=== PATIENT | male | born 1950 | race Caucasian/White ===

== ENCOUNTER 2019-08-20 07:32 | Day surgery (SDC) | payer MEDICARE, OTHER ==
[~2019-08-20 07:32] MED LIST: Lactated Ringers 1,000 ML IV SCH; Sodium Chloride 0.9% 10 ML SDV IV PRN; Sodium Chloride 0.9% 10 ML Syringe FLUSH PRN; Sodium Chloride 0.9% 2.5 ML Syringe FLUSH PRN; ceFAZolin 2 GM in Premix Bag 1 BAG IV ONE
--- NOTE | 2019-08-20 08:02 | PCM.PREANE ---
Preanesthetic Assessment - Anesthesia/Transfusion/Family Hx Anesthesia History: Prior Anesthesia Without Reaction Family History of Anesthesia Reaction: No Transfusion History: No Prior Transfusion(s) Intubation History: Unknown - Review of Systems General: No Symptoms Pulmonary: No Symptoms Cardiovascular: No Symptoms Gastrointestinal: No Symptoms Neurological: No Symptoms Other: Reports: None - Physical Assessment Height: 5 ft 10 in Weight: 100.698 kg ASA Class: 2 Mental Status: Alert & Oriented x3 Airway Class: Mallampati = 2 Dentition: Reports: Normal Dentition (small chip front upper incisor) Thyro-Mental Finger Breadths: 3 Mouth Opening Finger Breadths: 2 ROM/Head Extension: Full Lungs: Clear to Auscultation, Normal Respiratory Effort Cardiovascular: Regular Rate, Regular Rhythm - Allergies Allergies/Adverse Reactions: Allergies Allergy/AdvReac Type Severity Reaction Status Date / Time No Known Allergies Allergy Verified 08/16/19 08:50 - Blood Blood Available: No - Anesthesia Plan Pre-Op Medication Ordered: None - Acknowledgements Anesthesia Type Planned: Spinal (general anesthesia back-up plan) Pt an Appropriate Candidate for the Planned Anesthesia: Yes Alternatives and Risks of Anesthesia Discussed w Pt/Guardian: Yes Pt/Guardian Understands and Agrees with Anesthesia Plan: Yes PreAnesthesia Questionnaire HEENT History: Reports: None Cardiovascular History: Reports: Blood Clots/VTE/DVT, Hypertension Other Cardiovascular History: DVT left leg 2 years ago, 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 [place], [place] - no evidence of DVT Respiratory History: Reports: None Gastrointestinal History: Reports: None Genitourinary History: Reports: None Musculoskeletal History: Reports: None Neurological History: Reports: None Psychiatric History: Reports: None Endocrine/Metabolic History: Reports: Obesity/BMI 30+ (BMI 31.9) Hematologic History: Reports: None Immunologic History: Reports: None Oncologic (Cancer) History: Reports: None Dermatologic History: Reports: None - Past Surgical History Head Surgeries/Procedures: Reports: None HEENT Surgical History: Reports: Cataract Surgery (local anesthesia) Cardiovascular Surgical History: Reports: None Respiratory Surgical History: Reports: None GI Surgical History: Reports: None Male Surgical History: Reports: None Endocrine Surgical History: Reports: None Neurological Surgical History: Reports: None Musculoskeletal Surgical History: Reports: None Oncologic Surgical History: Reports: None Dermatological Surgical History: Reports: None - SUBSTANCE USE Smoking Status *Q: Never Smoker - HOME MEDS Home Medications: Home Meds lisinopriL [Lisinopril] 10 mg PO DAILY 08/16/19 [History] - CURRENT (IN HOUSE) MEDS Current Meds: Current Medications Lactated Ringer's (Ringers, Lactated) 1,000 mls @ 100 mls/hr IV ASDIRECTED JOSH Sodium Chloride (Saline Flush) 10 ml FLUSH ASDIRECTED PRN PRN Reason: Keep Vein Open Sodium Chloride (Saline Flush) 2.5 ml FLUSH ASDIRECTED PRN PRN Reason: Keep Vein Open Sodium Chloride (Normal Saline) 10 ml IV ASDIRECTED PRN PRN Reason: IV Use Discontinued Medications Cefazolin Sodium/Dextrose 2 gm (/ Premix) 50 mls @ 100 mls/hr IV ONETIME ONE Stop: 08/20/19 00:30
[2019-08-20] MEDS ORDERED: fentaNYL 100 MCG/2 ML SDV ONE ×2 (08:59→09:46)
[2019-08-20] MEDS ORDERED: Ondansetron 4 MG/2 ML SDV ONE (08:59)
[2019-08-20] MEDS ORDERED: Propofol 200 MG/20 ML SDV ONE ×3 (08:59→13:12)
[2019-08-20] MEDS ORDERED: Midazolam 1 MG/ML 2 ML SDV ONE (09:00)
[2019-08-20] MEDS ORDERED: Lidocaine 2% 5 ML SDV ONE (09:00)
[2019-08-20] MEDS ORDERED: Ketorolac 30 MG/ML SDV ONE ×2 (10:24→12:12)
[2019-08-20] MEDS ORDERED: Sodium Chloride 0.9% 20 ML ONE (11:34)
[2019-08-20] MEDS ORDERED: ceFAZolin 1 GM Vial ONE (11:34)
[2019-08-20] MEDS ORDERED: Bupivacaine 0.25% 10 ML SDV ONE (11:40)
[2019-08-20] MEDS ORDERED: Morphine 10 MG/ML Syringe IVPUSH ONE (13:23)
--- NOTE | 2019-08-20 13:57 | PCM.POSTAN ---
POST ANESTHESIA ASSESSMENT - MENTAL STATUS Mental Status: Alert - VITAL SIGNS Vital Signs: Last Vital Signs Temp 36 C L 08/20/19 13:32 Pulse 53 L 08/20/19 13:47 Resp 10 L 08/20/19 13:47 BP 153/74 H 08/20/19 13:47 Pulse Ox 95 08/20/19 13:47 - RESPIRATORY Respiratory Status: Respiratory Rate WNL - CARDIOVASCULAR CV Status: Pulse Rate WNL - GASTROINTESTINAL GI Status: No Symptoms - PAIN Pain Score: 0 (SAB regressing) - POST OP HYDRATION Hydration Status: Adequate & Stable (Doing well.)
[2019-08-20] MEDS ORDERED: Acetaminophen/HYDROcodone 325-5 MG Tab PO ONE (14:26)
[2019-08-20] MEDS ORDERED: Acetaminophen/HYDROcodone 325-5 MG Tab ONE (14:34)
--- NOTE | 2019-08-20 14:48 | PCM48HPAN ---
Post Anesthesia Note - EVALUATION WITHIN 48HRS OF ANESTHETIC Vital Signs in Normal Range: Yes Patient Participated in Evaluation: Yes Respiratory Function Stable: Yes Airway Patent: Yes Cardiovascular Function Stable: Yes Hydration Status Stable: Yes Pain Control Satisfactory: Yes Nausea and Vomiting Control Satisfactory: Yes Mental Status Recovered: Yes Vital Signs: Last Vital Signs Temp 36 C L 08/20/19 13:32 Pulse 53 L 08/20/19 13:47 Resp 10 L 08/20/19 13:47 BP 153/74 H 08/20/19 13:47 Pulse Ox 95 08/20/19 13:47 - COMMENTS/OBSERVATIONS Free Text/Narrative:: No anesthesia problems
--- NOTE | 2019-08-20 14:50 | OR ---
SURGEON: Praveen Abreu M.D. DATE OF PROCEDURE: 08/20/2019 PREOPERATIVE DIAGNOSIS: Bilateral epididymal cyst. POSTOPERATIVE DIAGNOSIS: Bilateral epididymal cyst. OPERATION: Bilateral epididymal cyst excision. DESCRIPTION OF PROCEDURE: The patient was given spinal anesthesia. He was in the supine position. External genital area was prepped and draped in sterile drapes. A transverse incision made in left scrotal sac. The epididymal cyst was entirely excised. The testicle now has a longer cord and more space, was secured to the wall of the scrotal sac with one suture of 3-0 chromic for good measure. The space was drained with half-inch Sebastian drain, brought to the outside through a separate stab wound incision at the bottom of the scrotal sac. The incision was then closed using interrupted full-thickness 3-0 chromic sutures. The exact same procedure was done on the right side. With that done, the procedure was terminated. The patient was moved to recovery room in good condition. He will come back to the office in 2 days to have the [place] drains removed and then again a week from today for followup exam. JOEY / DK /[id number]
== END 2019-08-20 15:05 | disposition home or self-care (01) ==
LOC: MW.SDS 07:32
PROVIDERS: ATTEND Urology
DX: N50.3 Cyst of epididymis (principal); N43.3 Hydrocele, unspecified; E66.9 Obesity, unspecified; Z68.31 Body mass index [BMI] 31.0-31.9, adult
CPT/HCPCS: 54830; 88304; A9270; J0131; J0690; J1885; J2001; J2250; J2405; J2704; J3010; J3490; J7120; 00920

== ENCOUNTER 2019-08-20 20:03 | Emergency (ER) | payer MEDICARE ==
--- NOTE | 2019-08-20 20:31 | EDM.PDOC ---
ED HPI GENERAL MEDICAL PROBLEM - General Chief Complaint: Genitourinary Problem Stated Complaint: SURGERY COMPLICATIONS Time Seen by Provider: 08/20/19 20:18 Source of Information: Reports: Patient History Limitations: Reports: No Limitations - History of Present Illness INITIAL COMMENTS - FREE TEXT/NARRATIVE: This patient is a 69-year-old male with a past medical history of hypertension, postop day #0 status post bilateral epididymal cyst excisions performed at our facility by Dr. Abreu. He states that he went home from same-day surgery around 4 PM. After he went home, he developed new bleeding from the bilateral scrotal drains that were placed during the surgery. The amount of bleeding was concerning to him, so he came to our emergency department evaluated. He states that he did change his dressings 1 time prior to arrival, and the bleeding has since stopped. He denies any anticoagulation or antiplatelet medication usage. At present he denies any pain, denies any worsening scrotal edema/swelling since being discharged from same-day surgery. 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 [place] - no evidence of DVT Respiratory History: Reports: None Gastrointestinal History: Reports: None Genitourinary History: Reports: None Musculoskeletal History: Reports: None Neurological History: Reports: None Psychiatric History: Reports: None Endocrine/Metabolic History: Reports: Obesity/BMI 30+ Hematologic History: Reports: None Immunologic History: Reports: None Oncologic (Cancer) History: Reports: None Dermatologic History: Reports: None - Past Surgical History Head Surgeries/Procedures: Reports: None HEENT Surgical History: Reports: Cataract Surgery Cardiovascular Surgical History: Reports: None Respiratory Surgical History: Reports: None GI Surgical History: Reports: None Male Surgical History: Reports: None Endocrine Surgical History: Reports: None Neurological Surgical History: Reports: None Musculoskeletal Surgical History: Reports: None Oncologic Surgical History: Reports: None Dermatological Surgical History: Reports: None Social & Family History - Family History Family Medical History: Noncontributory ED ROS GENERAL - Review of Systems Review Of Systems: Comprehensive ROS is negative, except as noted in HPI. Constitutional: Denies: Fever HEENT: Reports: No Symptoms Respiratory: Denies: Shortness of Breath Cardiovascular: Denies: Chest Pain Endocrine: Reports: No Symptoms GI/Abdominal: Denies: Abdominal Pain, Nausea, Vomiting : Reports: Other (Bleeding from bilateral scrotal drains placed during surgery ). Denies: Dysuria, Frequency, Urgency Musculoskeletal: Reports: No Symptoms Skin: Reports: No Symptoms Neurological: Reports: No Symptoms Psychiatric: Reports: No Symptoms Hematologic/Lymphatic: Reports: No Symptoms Immunologic: Reports: No Symptoms ED EXAM, RENAL/ - Physical Exam Exam: See Below Text/Narrative:: All signs reviewed. Nursing notes reviewed. Constitutional: Awake, alert, non-distressed Head: Normocephalic, atraumatic Eyes: EOMI, PERRL at 3 mm bilaterally, conjunctiva normal, no discharge, no scleral icterus Ears, Nose, Throat: External ears and ears normal, moist oral mucosa Cardiovascular: RRR, no R/M/G, 2+ radial pulses bilaterally, capillary refill less than 2 seconds Pulmonary: CTABL, normal work of breathing, no accessory muscle use Abdomen/GI: Soft, nontender, nondistended, no guarding or rigidity, no masses Genitourinary: Scrotal edema noted, patient states this is unchanged since being discharged from same-day surgery. Small area of ecchymosis to left side of the scrotum. 2 [place] drains are in place. Dried blood noted around the drains, no ongoing hemorrhage. Musculoskeletal: No deformities or edema Integumentary: Appropriate color for ethnicity, warm, dry, no pallor or jaundice , no rash Neurologic: Alert, answering questions appropriately, normal speech, no facial droop, moving all extremities well Psychiatric: Appropriate mood and affect, normal thought process Course - Vital Signs Text/Narrative:: 69-year-old male presenting with postoperative hemorrhage following bilateral epididymal cyst excision several hours ago. On arrival to the ED, he is hemodynamically stable, afebrile, and well-appearing. Physical examination reveals dried blood around the surgery site but no ongoing hemorrhage. Drains are patent and in place. Labs are drawn, showing a normal hemoglobin, normal platelet count and white blood cell count, normal electrolytes and renal function, normal INR. Patient was monitored for a brief period in the emergency department without recurrence of bleeding or any new complaints. He was resting comfortably and appeared non-distressed. I did contact the patient's urologist Dr. Abreu to apprise him of the patient's emergency department presentation. Given his negative work-up and well appearance, I think he can safely be discharged and we will plan to have the patient follow-up with Dr. Arbeu in the clinic tomorrow morning. Strict ED return precautions were given for recurrence of hemorrhage, worsening pain, or any other new or concerning symptoms. All questions were answered prior to the patient being discharged in good condition. Last Recorded V/S: Last Vital Signs Temp 36.6 C 08/20/19 20:15 Pulse 85 08/20/19 20:15 Resp 18 08/20/19 20:15 BP 121/82 08/20/19 20:15 Pulse Ox 98 08/20/19 20:15 - Orders/Labs/Meds Labs: Laboratory Tests 08/20/19 08/20/19 08/20/19 Range/Units 20:35 20:35 20:35 WBC 9.03 (4.0-11.0) K/uL RBC 4.54 (4.50-5.90) M/uL Hgb 12.4 L (13.0-17.0) g/dL Hct 38.7 (38.0-50.0) % MCV 85.2 (80.0-98.0) fL MCH 27.3 (27.0-32.0) pg MCHC 32.0 (31.0-37.0) g/dL RDW Std Deviation 41.5 (28.0-62.0) fl RDW Coeff of Nell 14 (11.0-15.0) % Plt Count 157 (150-400) K/uL MPV 10.00 (7.40-12.00) fL Neut % (Auto) 68.9 (48.0-80.0) % Lymph % (Auto) 15.5 L (16.0-40.0) % [place] % (Auto) 7.9 (0.0-15.0) % Eos % (Auto) 7.4 H (0.0-7.0) % Baso % (Auto) 0.3 (0.0-1.5) % Neut # (Auto) 6.2 H (1.4-5.7) K/uL Lymph # (Auto) 1.4 (0.6-2.4) K/uL [place] # (Auto) 0.7 (0.0-0.8) K/uL Eos # (Auto) 0.7 (0.0-0.7) K/uL Baso # (Auto) 0.0 (0.0-0.1) K/uL Nucleated RBC % 0.0 /100WBC Nucleated RBCs # 0 K/uL INR 1.10 Sodium 140 (136-148) mmol/L Potassium 4.2 (3.5-5.1) mmol/L Chloride 106 (98-107) mmol/L Carbon Dioxide 26.1 (21.0-32.0) mmol/L BUN 18 (7.0-18.0) mg/dL Creatinine 1.2 (0.8-1.3) mg/dL Est Cr Clr Drug Dosing 61.68 mL/min Estimated GFR (MDRD) > 60.0 ml/min Glucose 146 H (74-106) mg/dL Calcium 8.6 (8.5-10.1) mg/dL Departure - Departure Time of Disposition: 21:05 Disposition: Home, Self-Care 01 Condition: Good Clinical Impression: Post-operative hemorrhage Qualifiers: Surgical complication system/body Area: genitourinary Procedure type: genitourinary Qualified Code(s): N99.820 - Postprocedural hemorrhage of a genitourinary system organ or structure following a genitourinary system procedure - Discharge Information *PRESCRIPTION DRUG MONITORING PROGRAM REVIEWED*: Not Applicable *COPY OF PRESCRIPTION DRUG MONITORING REPORT IN PATIENT IMELDA: Not Applicable Referrals: Praveen Abreu MD [Physician] - 1 Day (Follow up in Dr. Abreu's urology clinic tomorrow for repeat evaluation.) Forms: ED Department Discharge Additional Instructions: The following information is given to patients seen in the emergency department who are being discharged to home. This information is to outline your options for follow-up care. We provide all patients seen in our emergency department with a follow-up referral. The need for follow-up, as well as the timing and circumstances, are variable depending upon the specifics of your emergency department visit. If you don't have a primary care physician on staff, we will provide you with a referral. We always advise you to contact your personal physician following an emergency department visit to inform them of the circumstance of the visit and for follow-up with them and/or the need for any referrals to a consulting specialist. The emergency department will also refer you to a specialist when appropriate. This referral assures that you have the opportunity for follow-up care with a specialist. All of these measure are taken in an effort to provide you with optimal care, which includes your follow-up. Under all circumstances we always encourage you to contact your private physician who remains a resource for coordinating your care. When calling for follow-up care, please make the office aware that this follow-up is from your recent emergency room visit. If for any reason you are refused follow-up, please contact the Emergency Department at and asked to speak to the emergency department charge nurse. Sepsis Event Note - Focused Exam Vital Signs: Vital Signs Temp Pulse Resp BP Pulse Ox 08/20/19 20:15 36.6 C 85 18 121/82 98 Date Exam was Performed: 08/20/19 Time Exam was Performed: 21:07
[2019-08-20 20:56] LABS: BLOOD UREA NITROGEN,BUN 18 mg/dL (7.0-18.0); CARBON DIOXIDE,CO2 26.1 mmol/L (21.0-32.0); CHLORIDE,CL 106 mmol/L (98-107); GLUCOSE RANDOM 146 mg/dL (74-106); POTASSIUM,K 4.2 mmol/L (3.5-5.1); SODIUM,NA 140 mmol/L (136-148)
== END 2019-08-20 21:20 | disposition home or self-care (01) ==
LOC: MW.ED 20:03
DX: N99.820 Postprocedural hemorrhage of a genitourinary system organ or structure following a genitourinary system procedure (principal); I10 Essential (primary) hypertension; E66.9 Obesity, unspecified; Z68.31 Body mass index [BMI] 31.0-31.9, adult; Z86.718 Personal history of other venous thrombosis and embolism; Z79.899 Other long term (current) drug therapy
CPT/HCPCS: 36415; 80048; 85025; 85610; 99282; 99283